=== PATIENT | male | born 1990 | race Two or more races ===

== ENCOUNTER 2017-01-14 02:45 | Emergency (ER) | payer OTHER ==
[~2017-01-14] VITALS: Ht 172.7 cm; Wt 86.2 kg
--- NOTE | 2017-01-14 03:34 | NUR ---
PT AMBULATORY TO ER BED 9. PT STATES "WAS WALKING MY DOG AND A BUG FELL IN LT EAR" PT AOX3 RR EVEN AND UNLABORED. NO SOB NOTED. NAD NOTED. NO NVD AT THIS TIME. PT GOWNED AND PLACED ON MONITOR WAITING FOR MD RAMIREZ.
--- NOTE | 2017-01-14 04:00 | NUR ---
DR. SMITH AT BEDSIDE FOR EVAL.
--- NOTE | 2017-01-14 04:24 | NUR ---
Patient discharged to home in stable condition. Written and verbal after care instructions given. Patient verbalizes understanding of instruction. ambulatory with a steady gait
[2017-01-14 04:25] VITALS: BP 138/89
== END 2017-01-14 04:25 | disposition home or self-care (01) ==
LOC: ER 02:49
DX: H72.92 Unspecified perforation of tympanic membrane, left ear (principal)
CPT/HCPCS: A4606; Z7610